=== PATIENT | female | born 1935 | race Caucasian/White ===

== ENCOUNTER 2022-08-02 08:03 | Day surgery (SDC) | payer MEDICARE, BC ==
[~2022-08-02] VITALS: Ht 162.6 cm; Wt 80.9 kg
[~2022-08-02 08:03] MED LIST: ALPR-623 PO; ASPI-1071 PO; ATOR10TA87 PO; BETA1TAB18 PO; BUPR300T53 PO; CLIN150C8 PO; CLOP75TA15 PO; FERR-68 PO; FURO40TA4 PO; HYDR-3965 PO; LANS15CA14 PO; LATA2.5D6 EACHEYE; NYST1000 PO; POTA8CAP20 PO
[2022-08-02] MEDS ORDERED: METO-539 PO (08:32)
[2022-08-02] MEDS ORDERED: LEVO75TA PO (08:32)
[2022-08-02] MEDS ORDERED: fentaNYL/PF 50MCG/1 ML 2ML syringe ONE (08:47)
[2022-08-02] MEDS ORDERED: MIDAZolam 1 MG/ML 5ML VIAL ONE (08:47)
[2022-08-02 08:48] VITALS: BP 101/48
[2022-08-02] MEDS ORDERED: LIDOcaine Viscous 15ml cup ONE (08:48)
[2022-08-02 09:20] VITALS: BP 122/82
[2022-08-02 09:30] VITALS: BP 123/71
[2022-08-02 09:40] VITALS: BP 113/66
[2022-08-02 09:50] VITALS: BP 114/58
== END 2022-08-02 09:55 | disposition home or self-care (01) ==
LOC: GI LAB 08:03
PROVIDERS: ATTEND Internal Medicine Gastroenterology
DX: K21.00 Gastro-esophageal reflux disease with esophagitis, without bleeding (principal); K44.9 Diaphragmatic hernia without obstruction or gangrene; K29.70 Gastritis, unspecified, without bleeding; K22.2 Esophageal obstruction; Z79.899 Other long term (current) drug therapy; Z98.890 Other specified postprocedural states
CPT/HCPCS: 43239; 43450; G0500; J2250; J3010; J7030; Z7512; 88305; 99152; A4620

== ENCOUNTER 2023-05-03 12:10 | Emergency (ER) | payer MEDICARE, BC ==
[~2023-05-03] VITALS: Ht 162.6 cm; Wt 79.1 kg
[~2023-05-03 12:10] MED LIST changes: -ALPR-623 PO; -ASPI-1071 PO; -BUPR300T53 PO; -CLIN150C8 PO; -FERR-68 PO; +LEVO75TA PO; +METO-539 PO; -NYST1000 PO
[2023-05-03 12:11] VITALS: BP 123/63
== END 2023-05-03 13:08 | disposition home or self-care (01) ==
LOC: ER 12:10
DX: I63.89 Other cerebral infarction (principal); W18.39XA Other fall on same level, initial encounter; Y93.89 Activity, other specified; Y92.89 Other specified places as the place of occurrence of the external cause; Y99.8 Other external cause status
CPT/HCPCS: 70450; 99284; A6258; A4565; A6449

== ENCOUNTER 2024-02-25 11:07 | Outpatient (CLI) | payer MEDICARE, BC | END 2024-02-25 23:59 | disposition home or self-care (01) | LOC: RAD 11:07 | PROVIDERS: ATTEND Internal Medicine Hematology & Oncology | DX: C50.411 Malignant neoplasm of upper-outer quadrant of right female breast (principal); C20 Malignant neoplasm of rectum; R91.8 Other nonspecific abnormal finding of lung field; I25.10 Atherosclerotic heart disease of native coronary artery without angina pectoris; I70.0 Atherosclerosis of aorta; N28.1 Cyst of kidney, acquired; K76.89 Other specified diseases of liver; K86.89 Other specified diseases of pancreas; N85.8 Other specified noninflammatory disorders of uterus; M47.815 Spondylosis without myelopathy or radiculopathy, thoracolumbar region | CPT/HCPCS: 71250; 74176 ==

== ENCOUNTER 2024-05-29 11:45 | Outpatient (CLI) | payer MEDICARE, BC ==
[2024-05-29 13:00] LABS: ALBUMIN 3.6 G/DL (3.4-5.0); ANION GAP 4 (8-16); BLOOD UREA NITROGEN 8 MG/DL (7-18); BUN/CREATININE RATIO 12.7 (10.0-20.0); CALCIUM 9.1 MG/DL (8.5-10.1); CHLORIDE 105 MMOL/L (99-107); CREATININE 0.63 MG/DL (0.40-0.90); GLUCOSE 91 MG/DL (70-104); POTASSIUM 4.1 MMOL/L (3.5-5.1); SODIUM 137 MMOL/L (135-145); TOTAL CARBON DIOXIDE 28.3 MMOL/L (24-32); eGFR 89 ML/MIN
[2024-05-29] MEDS ORDERED: iohexol 300mg/ml 100ml inj. ONE (13:08)
== END 2024-05-29 23:59 | disposition home or self-care (01) ==
LOC: 64 CT 11:45
PROVIDERS: ATTEND Physician Assistant Medical
DX: C20 Malignant neoplasm of rectum (principal); N28.1 Cyst of kidney, acquired; R91.1 Solitary pulmonary nodule; I34.81 Nonrheumatic mitral (valve) annulus calcification; I51.7 Cardiomegaly; I25.10 Atherosclerotic heart disease of native coronary artery without angina pectoris; M19.011 Primary osteoarthritis, right shoulder; M41.85 Other forms of scoliosis, thoracolumbar region; M51.35 Other intervertebral disc degeneration, thoracolumbar region; M43.8X5 Other specified deforming dorsopathies, thoracolumbar region; M16.11 Unilateral primary osteoarthritis, right hip
CPT/HCPCS: 36415; 71260; 74177; 80048; Q9967